=== PATIENT | female | born 1930 | race Caucasian/White ===

== ENCOUNTER 2017-11-03 03:02 | Inpatient (IN) ==
[2017-11-03] MEDS ORDERED: KETOROLAC 30 MG/1 ML VIAL IV STA (03:38)
[2017-11-03 04:06] LABS: Basophils % 0.2 % (0.0-0.8); Eosinophils % 0.1 % (0.00-10.9); Hematocrit 40.7 VOL% (35.7-47.0); Hemoglobin 13.7 GM/DL (12.0-16.0); Immature Granulocytes % 1.7 %; Immature Granulocytes Absolute 0.23 #; Lymphocytes # 2.2 10*3/uL (1.4-4.0); Lymphocytes % 16.2 % (21.3-54.2); Mean Corpuscular HGB Conc 33.7 GM/DL (32-36); Mean Corpuscular Hemoglobin 30 PG (27-34); Mean Corpuscular Volume 87.9 FL (87-102); Mean Platelet Volume 9.5 FL (9.6-12.0); Monocytes # 1.3 10*3/uL (0.11-0.8); Monocytes % 9.8 % (1.7-12.7); Neutrophils # 9.8 10*3/uL (1.4-7.4); Platelet Count 267 T/CUMM (130-400); Red Blood Count 4.63 MC/CUMM (3.8-5.5); Red Cell Distribution Width 13.4 % (9.3-17.3); White Blood Count 13.6 T/CUMM (4-12)
[2017-11-03 04:24] LABS: Bilirubin,Total 0.7 MG/DL (0.2-1.0); Calcium 9.6 MG/DL (8.5-10.1); Osmolality,Calculated 273.1 MOS/KG (273-304); Total Protein 6.9 G/DL (6.4-8.3)
[2017-11-03] MEDS ORDERED: DEXTROSE 50% 25 GM/50 ML VIAL IV PRN (06:22)
[2017-11-03] MEDS ORDERED: ACETAMINOPHEN 325 MG TABLET PO PRN (06:22)
[2017-11-03] MEDS ORDERED: ONDANSETRON 4 MG/2 ML VIAL IV PRN (06:22)
[2017-11-03] MEDS ORDERED: GLUCAGON 1 MG VIAL IM PRN (06:22)
[2017-11-03] MEDS ORDERED: ALBUTEROL 2.5 MG/3 ML NEB RESP TX PRN (06:22)
[2017-11-03] MEDS ORDERED: KETOROLAC 30 MG/1 ML VIAL ONE (06:29)
[2017-11-03] MEDS ORDERED: LEVOFLOXACIN INJ 150 ML IV ONE (06:38)
[2017-11-03] MEDS ORDERED: LEVOFLOXACIN INJ 750 MG in PREMIX 1 EACH IV SCH (07:00)
[2017-11-03] MEDS ORDERED: FUROSEMIDE 20 MG TABLET PO PRN (08:24)
[2017-11-03] MEDS ORDERED: NAPROXEN 250 MG TABLET PO SCH (09:00)
[2017-11-03] MEDS ORDERED: POTASSIUM IODIDE ORAL SOLN 1,000 MG/ML BOTTLE PO SCH ×2 (09:00→15:00)
[2017-11-03] MEDS: ALBUTEROL/IPRATROPIUM 3 ML NEB RESP TX SCH ×3 (09:23→19:26)
[2017-11-03] MEDS: INSULIN REGULAR 100 UNIT/ML SUBCUT SCH ×4 (09:48→21:52)
[2017-11-03] MEDS: sitaGLIPtin 100 MG TABLET PO SCH (10:05)
[2017-11-03] MEDS: METOPROLOL SUCCINATE XL 50 MG TABLET PO SCH (10:06)
[2017-11-03] MEDS: CALCIUM (CARBONATE)/VITAMIN D 500 MG-200 UNIT TABLET PO SCH (10:06)
[2017-11-03] MEDS: MONTELUKAST 10 MG TABLET PO SCH (10:06)
[2017-11-03] MEDS: predniSONE 5 MG TABLET PO SCH (10:06)
[2017-11-03] MEDS: hydroCHLOROthiazide 12.5 MG CAPSULE PO SCH ×3 (10:06→21:52)
[2017-11-03] MEDS: LEVOTHYROXINE 50 MCG TABLET PO SCH (10:06)
[2017-11-03] MEDS: THEOPHYLLINE ER (24 HR) 200 MG CAPSULE PO SCH (10:06)
[2017-11-03] MEDS: ROSUVASTATIN 10 MG TABLET PO SCH (10:07)
[2017-11-03] MEDS: POTASSIUM CHLORIDE 20 MEQ TABLET PO SCH ×2 (10:07→21:52)
[2017-11-03] MEDS: ASPIRIN EC 81 MG TABLET PO SCH ×2 (10:07→21:53)
[2017-11-03] MEDS: PANTOPRAZOLE 40 MG TABLET PO SCH (10:07)
[2017-11-03 12:53] LABS: Apearance,Urine Slightly Hazy (Clear); Bilirubin,Urine Negative (Negative); Blood, Urine Negative (Negative); Glucose,Urine (UA) 50 mg/dL (Negative); Ketones,Urine Negative (Negative); Mucus,Urine Occasional /LPF (Occasional); Nitrite,Urine Negative (Negative); Protein,Urine Negative; RBC,Urine 17 /HPF (0-4); Squamous Epithelial Cell,Urine Occasional /HPF (0-10); Urine Color Yellow (Yellow); Urine Specific Gravity > 1.060 (1.001-1.035); Urine Urobilinogen < 2.0 EU/DL (0.2-1.0); WBC,Urine 73 /HPF (0-6)
[2017-11-03] MEDS: MAGNESIUM CHLORIDE 64 MG TABLET PO SCH ×2 (14:21→21:52)
[2017-11-03] MEDS: methylPREDNISolone SOD SUC 40 MG/1 ML VIAL IV SCH (14:45)
[2017-11-03] MEDS: CHOLECALCIFEROL 400 UNIT TABLET PO SCH (21:52)
[2017-11-03] MEDS: BENZONATATE 100 MG CAPSULE PO SCH (21:53)
[2017-11-03] MEDS: NAPROXEN 250 MG TABLET PO SCH (21:55)
[2017-11-04] MEDS: ALBUTEROL/IPRATROPIUM 3 ML NEB RESP TX SCH ×4 (00:25→20:16)
[2017-11-04] MEDS: methylPREDNISolone SOD SUC 40 MG/1 ML VIAL IV SCH ×2 (01:16→11:55)
[2017-11-04] MEDS: LEVOTHYROXINE 50 MCG TABLET PO SCH (06:26)
[2017-11-04 06:37] LABS: Basophils % 0.2 % (0.0-0.8); Hematocrit 37.9 VOL% (35.7-47.0); Hemoglobin 12.8 GM/DL (12.0-16.0); Immature Granulocytes % 1.5 %; Immature Granulocytes Absolute 0.29 #; Lymphocytes # 0.7 10*3/uL (1.4-4.0); Lymphocytes % 3.8 % (21.3-54.2); Mean Corpuscular HGB Conc 33.8 GM/DL (32-36); Mean Corpuscular Hemoglobin 29 PG (27-34); Mean Corpuscular Volume 86.5 FL (87-102); Mean Platelet Volume 9.9 FL (9.6-12.0); Monocytes # 0.4 10*3/uL (0.11-0.8); Monocytes % 1.9 % (1.7-12.7); Neutrophils # 17.8 10*3/uL (1.4-7.4); Neutrophils % 92.6 % (38.7-73.9); Platelet Count 287 T/CUMM (130-400); Red Blood Count 4.38 MC/CUMM (3.8-5.5); Red Cell Distribution Width 13.2 % (9.3-17.3); White Blood Count 19.2 T/CUMM (4-12)
[2017-11-04 06:59] LABS: Albumin 3.4 G/DL (3.4-5.0); Bilirubin,Total 0.8 MG/DL (0.2-1.0); Calcium 9.1 MG/DL (8.5-10.1); Osmolality,Calculated 273.2 MOS/KG (273-304); Potassium 4.6 MMOL/L (3.5-5.1)
[2017-11-04 07:02] LABS: Hypochromasia 1+; Lymphocytes 4 % (20-55); Microcytosis 1+; Platelet Estimate Normal; Segmented Neutrophils 92 % (50-85); Total Cells Counted 100
[2017-11-04] MEDS: INSULIN REGULAR 100 UNIT/ML SUBCUT SCH ×4 (08:49→21:11)
[2017-11-04] MEDS: hydroCHLOROthiazide 12.5 MG CAPSULE PO SCH ×3 (09:00→21:12)
[2017-11-04] MEDS: THEOPHYLLINE ER (24 HR) 200 MG CAPSULE PO SCH (09:01)
[2017-11-04] MEDS: NAPROXEN 250 MG TABLET PO SCH ×2 (09:01→21:12)
[2017-11-04] MEDS: MAGNESIUM CHLORIDE 64 MG TABLET PO SCH ×2 (09:01→21:12)
[2017-11-04] MEDS: sitaGLIPtin 100 MG TABLET PO SCH (09:01)
[2017-11-04] MEDS: CALCIUM (CARBONATE)/VITAMIN D 500 MG-200 UNIT TABLET PO SCH (09:01)
[2017-11-04] MEDS: ROSUVASTATIN 10 MG TABLET PO SCH (09:01)
[2017-11-04] MEDS: POTASSIUM CHLORIDE 20 MEQ TABLET PO SCH ×2 (09:01→21:12)
[2017-11-04] MEDS: PANTOPRAZOLE 40 MG TABLET PO SCH (09:01)
[2017-11-04] MEDS: predniSONE 5 MG TABLET PO SCH (09:01)
[2017-11-04] MEDS: ASPIRIN EC 81 MG TABLET PO SCH ×2 (09:02→21:13)
[2017-11-04] MEDS: MONTELUKAST 10 MG TABLET PO SCH (09:02)
[2017-11-04] MEDS: METOPROLOL SUCCINATE XL 50 MG TABLET PO SCH (09:02)
[2017-11-04] MEDS ORDERED: LEVOFLOXACIN INJ 750 MG in PREMIX 1 EACH IV SCH (09:30)
[2017-11-04] MEDS ORDERED: FOSFOMYCIN 3 GM PACK PO ONE (10:20)
[2017-11-04 12:18] LABS: Apearance,Urine Slightly Hazy (Clear); Bilirubin,Urine Negative (Negative); Blood, Urine Moderate mg/dL (Negative); Glucose,Urine (UA) >=500 mg/dL (Negative); Hyaline Casts,Urine 6 /LPF (0-3); Ketones,Urine Negative (Negative); Mucus,Urine Few /LPF (Occasional); Nitrite,Urine Negative (Negative); Protein,Urine 30 MG/DL; RBC,Urine 93 /HPF (0-4); Squamous Epithelial Cell,Urine Occasional /HPF (0-10); Urine Color Yellow (Yellow); Urine Specific Gravity 1.024 (1.001-1.035); Urine Urobilinogen < 2.0 EU/DL (0.2-1.0); WBC,Urine 17 /HPF (0-6)
[2017-11-04] MEDS: CHOLECALCIFEROL 400 UNIT TABLET PO SCH (21:12)
[2017-11-04] MEDS: ZALEPLON 5 MG CAPSULE PO PRN (21:12)
[2017-11-04] MEDS: BENZONATATE 100 MG CAPSULE PO SCH (21:13)
[2017-11-05] MEDS: ALBUTEROL/IPRATROPIUM 3 ML NEB RESP TX SCH ×4 (00:49→21:13)
[2017-11-05] MEDS: LEVOTHYROXINE 50 MCG TABLET PO SCH (06:20)
[2017-11-05] MEDS: MONTELUKAST 10 MG TABLET PO SCH (08:13)
[2017-11-05] MEDS: CALCIUM (CARBONATE)/VITAMIN D 500 MG-200 UNIT TABLET PO SCH (08:13)
[2017-11-05] MEDS: sitaGLIPtin 100 MG TABLET PO SCH (08:13)
[2017-11-05] MEDS: THEOPHYLLINE ER (24 HR) 200 MG CAPSULE PO SCH (08:13)
[2017-11-05] MEDS: ROSUVASTATIN 10 MG TABLET PO SCH (08:13)
[2017-11-05] MEDS: hydroCHLOROthiazide 12.5 MG CAPSULE PO SCH ×3 (08:13→21:08)
[2017-11-05] MEDS: METOPROLOL SUCCINATE XL 50 MG TABLET PO SCH (08:13)
[2017-11-05] MEDS: POTASSIUM CHLORIDE 20 MEQ TABLET PO SCH ×2 (08:13→21:09)
[2017-11-05] MEDS: NAPROXEN 250 MG TABLET PO SCH ×2 (08:13→21:08)
[2017-11-05] MEDS: ASPIRIN EC 81 MG TABLET PO SCH ×2 (08:13→21:09)
[2017-11-05] MEDS: MAGNESIUM CHLORIDE 64 MG TABLET PO SCH ×2 (08:13→21:08)
[2017-11-05] MEDS: methylPREDNISolone SOD SUC 40 MG/1 ML VIAL IV SCH (08:13)
[2017-11-05] MEDS: PANTOPRAZOLE 40 MG TABLET PO SCH (08:13)
[2017-11-05] MEDS: predniSONE 5 MG TABLET PO SCH (08:13)
[2017-11-05] MEDS: INSULIN REGULAR 100 UNIT/ML SUBCUT SCH ×4 (08:44→21:09)
[2017-11-05] MEDS ORDERED: MAGNESIUM HYDROXIDE SUSP 30 ML UDCUP PO PRN (11:40)
[2017-11-05] MEDS ORDERED: MEROPENEM 500 MG in SODIUM CHLORIDE 0.9% 100 ML IV SCH (13:00)
[2017-11-05] MEDS ORDERED: FOSFOMYCIN 3 GM PACK PO ONE (15:00)
[2017-11-05] MEDS ORDERED: BISACODYL 5 MG TABLET PO ONE (16:20)
[2017-11-05] MEDS: TROLAMINE SALICYLATE 10% CREAM 85 GM TUBE TOP PRN (17:05)
[2017-11-05] MEDS: ZALEPLON 5 MG CAPSULE PO PRN (21:07)
[2017-11-05] MEDS: BENZONATATE 100 MG CAPSULE PO SCH (21:07)
[2017-11-05] MEDS: CHOLECALCIFEROL 400 UNIT TABLET PO SCH (21:08)
[2017-11-06] MEDS: ALBUTEROL/IPRATROPIUM 3 ML NEB RESP TX SCH ×4 (01:41→19:21)
[2017-11-06 06:33] LABS: Basophils # 0.1 10*3/uL (0.0-0.2); Basophils % 0.2 % (0.0-0.8); Hemoglobin 13.3 GM/DL (12.0-16.0); Immature Granulocytes % 1.8 %; Immature Granulocytes Absolute 0.37 #; Lymphocytes # 2.7 10*3/uL (1.4-4.0); Lymphocytes % 13.2 % (21.3-54.2); Mean Corpuscular HGB Conc 33.3 GM/DL (32-36); Mean Corpuscular Hemoglobin 29 PG (27-34); Mean Corpuscular Volume 88.5 FL (87-102); Mean Platelet Volume 9.6 FL (9.6-12.0); Monocytes # 1.7 10*3/uL (0.11-0.8); Monocytes % 8.3 % (1.7-12.7); Neutrophils # 15.4 10*3/uL (1.4-7.4); Neutrophils % 76.5 % (38.7-73.9); Platelet Count 299 T/CUMM (130-400); Red Blood Count 4.52 MC/CUMM (3.8-5.5); Red Cell Distribution Width 13.3 % (9.3-17.3); White Blood Count 20.2 T/CUMM (4-12)
[2017-11-06 06:45] LABS: Calcium 8.8 MG/DL (8.5-10.1); Osmolality,Calculated 269.5 MOS/KG (273-304)
[2017-11-06 06:52] LABS: Eosinophils 1 % (0-10); Giant Platelets Few; Hypochromasia 1+; Lymphocytes 11 % (20-55); Platelet Estimate Adequate; Segmented Neutrophils 86 % (50-85); Total Cells Counted 100
[2017-11-06 06:53] LABS: Microcytosis Slight
[2017-11-06] MEDS: hydroCHLOROthiazide 12.5 MG CAPSULE PO SCH ×3 (08:36→20:57)
[2017-11-06] MEDS: LEVOTHYROXINE 50 MCG TABLET PO SCH (08:36)
[2017-11-06] MEDS: ASPIRIN EC 81 MG TABLET PO SCH ×2 (08:36→20:57)
[2017-11-06] MEDS: ROSUVASTATIN 10 MG TABLET PO SCH (08:36)
[2017-11-06] MEDS: INSULIN REGULAR 100 UNIT/ML SUBCUT SCH ×4 (08:36→21:24)
[2017-11-06] MEDS: sitaGLIPtin 100 MG TABLET PO SCH (08:36)
[2017-11-06] MEDS: POTASSIUM CHLORIDE 20 MEQ TABLET PO SCH ×2 (08:37→20:57)
[2017-11-06] MEDS: NAPROXEN 250 MG TABLET PO SCH ×2 (08:37→20:57)
[2017-11-06] MEDS: THEOPHYLLINE ER (24 HR) 200 MG CAPSULE PO SCH (08:38)
[2017-11-06] MEDS: predniSONE 5 MG TABLET PO SCH (08:38)
[2017-11-06] MEDS: PANTOPRAZOLE 40 MG TABLET PO SCH (08:38)
[2017-11-06] MEDS: CALCIUM (CARBONATE)/VITAMIN D 500 MG-200 UNIT TABLET PO SCH (08:38)
[2017-11-06] MEDS: MONTELUKAST 10 MG TABLET PO SCH (08:38)
[2017-11-06] MEDS: MAGNESIUM CHLORIDE 64 MG TABLET PO SCH ×2 (08:38→20:57)
[2017-11-06] MEDS: methylPREDNISolone SOD SUC 40 MG/1 ML VIAL IV SCH (08:38)
[2017-11-06] MEDS: METOPROLOL SUCCINATE XL 50 MG TABLET PO SCH (08:38)
[2017-11-06] MEDS: TROLAMINE SALICYLATE 10% CREAM 85 GM TUBE TOP PRN (16:00)
[2017-11-06] MEDS: BENZONATATE 100 MG CAPSULE PO SCH (20:57)
[2017-11-06] MEDS: CHOLECALCIFEROL 400 UNIT TABLET PO SCH (20:57)
[2017-11-06] MEDS: ZALEPLON 5 MG CAPSULE PO PRN (20:57)
[2017-11-07] MEDS: ALBUTEROL/IPRATROPIUM 3 ML NEB RESP TX SCH ×4 (00:24→20:13)
[2017-11-07] MEDS: LEVOTHYROXINE 50 MCG TABLET PO SCH (06:13)
[2017-11-07] MEDS: INSULIN REGULAR 100 UNIT/ML SUBCUT SCH ×4 (07:38→20:47)
[2017-11-07] MEDS: ROSUVASTATIN 10 MG TABLET PO SCH (08:14)
[2017-11-07] MEDS: PANTOPRAZOLE 40 MG TABLET PO SCH (08:14)
[2017-11-07] MEDS: CALCIUM (CARBONATE)/VITAMIN D 500 MG-200 UNIT TABLET PO SCH (08:14)
[2017-11-07] MEDS: NAPROXEN 250 MG TABLET PO SCH ×2 (08:14→20:46)
[2017-11-07] MEDS: THEOPHYLLINE ER (24 HR) 200 MG CAPSULE PO SCH (08:14)
[2017-11-07] MEDS: MONTELUKAST 10 MG TABLET PO SCH (08:14)
[2017-11-07] MEDS: predniSONE 5 MG TABLET PO SCH (08:14)
[2017-11-07] MEDS: methylPREDNISolone SOD SUC 40 MG/1 ML VIAL IV SCH (08:14)
[2017-11-07] MEDS: METOPROLOL SUCCINATE XL 50 MG TABLET PO SCH (08:14)
[2017-11-07] MEDS: hydroCHLOROthiazide 12.5 MG CAPSULE PO SCH ×3 (08:15→20:46)
[2017-11-07] MEDS: sitaGLIPtin 100 MG TABLET PO SCH (08:15)
[2017-11-07] MEDS: POTASSIUM CHLORIDE 20 MEQ TABLET PO SCH ×2 (08:15→20:46)
[2017-11-07] MEDS: MAGNESIUM CHLORIDE 64 MG TABLET PO SCH ×2 (08:15→20:46)
[2017-11-07] MEDS: ASPIRIN EC 81 MG TABLET PO SCH ×2 (08:15→20:46)
[2017-11-07] MEDS: FLUTICASONE 50 MCG NASAL SPRAY 16 GM BOTTLE BOTH NARES SCH ×2 (12:05→20:48)
[2017-11-07] MEDS: AZTREONAM 1,000 MG in SYRINGE 1 EACH IV SCH (14:37)
[2017-11-07] MEDS: BENZONATATE 100 MG CAPSULE PO SCH (20:46)
[2017-11-07] MEDS: CHOLECALCIFEROL 400 UNIT TABLET PO SCH (20:46)
[2017-11-08] MEDS: ALBUTEROL/IPRATROPIUM 3 ML NEB RESP TX SCH ×3 (00:08→13:43)
[2017-11-08] MEDS: ZALEPLON 5 MG CAPSULE PO PRN (00:18)
[2017-11-08] MEDS: AZTREONAM 1,000 MG in SYRINGE 1 EACH IV SCH (03:58)
[2017-11-08] MEDS: LEVOTHYROXINE 50 MCG TABLET PO SCH (06:18)
[2017-11-08 06:33] LABS: Basophils # 0.1 10*3/uL (0.0-0.2); Basophils % 0.5 % (0.0-0.8); Hematocrit 42.5 VOL% (35.7-47.0); Hemoglobin 14.5 GM/DL (12.0-16.0); Immature Granulocytes % 3.2 %; Immature Granulocytes Absolute 0.56 #; Lymphocytes # 2.9 10*3/uL (1.4-4.0); Lymphocytes % 16.5 % (21.3-54.2); Mean Corpuscular HGB Conc 34.1 GM/DL (32-36); Mean Corpuscular Hemoglobin 29 PG (27-34); Mean Corpuscular Volume 86.2 FL (87-102); Mean Platelet Volume 9.4 FL (9.6-12.0); Monocytes # 1.2 10*3/uL (0.11-0.8); Monocytes % 6.9 % (1.7-12.7); NRBC # 0.03 10*3/uL; Neutrophils # 12.6 10*3/uL (1.4-7.4); Neutrophils % 72.9 % (38.7-73.9); Platelet Count 346 T/CUMM (130-400); Red Blood Count 4.93 MC/CUMM (3.8-5.5); Red Cell Distribution Width 13.4 % (9.3-17.3); White Blood Count 17.3 T/CUMM (4-12)
[2017-11-08 07:04] LABS: Band Neutrophils 1 % (0-10); Eosinophils 4 % (0-10); Hypochromasia 1+; Lymphocytes 21 % (20-55); Microcytosis Slight; Platelet Estimate Normal; Segmented Neutrophils 68 % (50-85); Total Cells Counted 100
[2017-11-08 07:05] LABS: Calcium 9.9 MG/DL (8.5-10.1); Osmolality,Calculated 270.4 MOS/KG (273-304); Potassium 4.5 MMOL/L (3.5-5.1)
[2017-11-08] MEDS: THEOPHYLLINE ER (24 HR) 200 MG CAPSULE PO SCH (08:12)
[2017-11-08] MEDS: MONTELUKAST 10 MG TABLET PO SCH (08:12)
[2017-11-08] MEDS: PANTOPRAZOLE 40 MG TABLET PO SCH (08:12)
[2017-11-08] MEDS: POTASSIUM CHLORIDE 20 MEQ TABLET PO SCH (08:12)
[2017-11-08] MEDS: ROSUVASTATIN 10 MG TABLET PO SCH (08:12)
[2017-11-08] MEDS: INSULIN REGULAR 100 UNIT/ML SUBCUT SCH ×2 (08:12→11:54)
[2017-11-08] MEDS: METOPROLOL SUCCINATE XL 50 MG TABLET PO SCH (08:12)
[2017-11-08] MEDS: sitaGLIPtin 100 MG TABLET PO SCH (08:12)
[2017-11-08] MEDS: hydroCHLOROthiazide 12.5 MG CAPSULE PO SCH ×2 (08:12→15:03)
[2017-11-08] MEDS: NAPROXEN 250 MG TABLET PO SCH (08:12)
[2017-11-08] MEDS: ASPIRIN EC 81 MG TABLET PO SCH (08:12)
[2017-11-08] MEDS: CALCIUM (CARBONATE)/VITAMIN D 500 MG-200 UNIT TABLET PO SCH (08:12)
[2017-11-08] MEDS: MAGNESIUM CHLORIDE 64 MG TABLET PO SCH (08:12)
[2017-11-08] MEDS: FLUTICASONE 50 MCG NASAL SPRAY 16 GM BOTTLE BOTH NARES SCH (08:12)
[2017-11-08] MEDS: methylPREDNISolone SOD SUC 40 MG/1 ML VIAL IV SCH (08:13)
[2017-11-08 12:29] VITALS: BP 153/82
[2017-11-08 14:35] LABS: Apearance,Urine CLEAR (Clear); Bacteria,Urine Occasional /HPF (Few); Bilirubin,Urine Negative (Negative); Blood, Urine Small mg/dL (Negative); Glucose,Urine (UA) Negative (Negative); Ketones,Urine Negative (Negative); Mucus,Urine Few /LPF (Occasional); Nitrite,Urine Positive (Negative); Protein,Urine Negative; RBC,Urine 7 /HPF (0-4); Squamous Epithelial Cell,Urine Occasional /HPF (0-10); Urine Color Yellow (Yellow); Urine Specific Gravity 1.015 (1.001-1.035); Urine Urobilinogen < 2.0 EU/DL (0.2-1.0); WBC,Urine 6 /HPF (0-6)
[2017-11-09] MEDS ORDERED: predniSONE 5 MG TABLET PO SCH (09:00)
== END 2017-11-08 16:12 | disposition swing bed (61) | DRG 194 ==
LOC: EDUNIT# 03:02 → N.ED 03:02 → EDBD 03:02 → N.EDINP 06:22 → SUATTDRO 06:22 → N.5E 06:50
PROVIDERS: ADMIT Internal Medicine; ATTEND Internal Medicine

== ENCOUNTER 2018-10-14 14:27 | Inpatient (IN) ==
[2018-10-14 16:29] LABS: Basophils % 0.3 % (0.0-0.8); Hematocrit 41.2 VOL% (35.7-47.0); Hemoglobin 13.1 GM/DL (12.0-16.0); Immature Granulocytes % 0.8 %; Immature Granulocytes Absolute 0.09 #; Lymphocytes # 2.1 10*3/uL (1.4-4.0); Lymphocytes % 19.3 % (21.3-54.2); Mean Corpuscular HGB Conc 31.8 GM/DL (32-36); Mean Corpuscular Hemoglobin 27 PG (27-34); Mean Corpuscular Volume 85.3 FL (87-102); Mean Platelet Volume 9.7 FL (9.6-12.0); Monocytes # 1.3 10*3/uL (0.11-0.8); Monocytes % 11.4 % (1.7-12.7); Neutrophils # 7.5 10*3/uL (1.4-7.4); Neutrophils % 68.2 % (38.7-73.9); Platelet Count 337 T/CUMM (130-400); Red Blood Count 4.83 MC/CUMM (3.8-5.5); Red Cell Distribution Width 14.1 % (9.3-17.3)
[2018-10-14 16:47] LABS: Bilirubin,Total 0.5 MG/DL (0.2-1.0); Calcium 9.4 MG/DL (8.5-10.1); Osmolality,Calculated 270.1 MOS/KG (273-304); Potassium 4.2 MMOL/L (3.5-5.1); Total Protein 6.8 G/DL (6.4-8.3)
[2018-10-14 16:49] LABS: Apearance,Urine Slightly Hazy (Clear); Bacteria,Urine Many /HPF (Few); Bilirubin,Urine Negative (Negative); Blood, Urine Moderate mg/dL (Negative); Glucose,Urine (UA) Negative (Negative); Ketones,Urine 5 mg/dL (Negative); Mucus,Urine Occasional /LPF (Occasional); Nitrite,Urine Positive (Negative); Protein,Urine Negative; RBC,Urine 6 /HPF (0-4); Urine Color Yellow (Yellow); Urine Specific Gravity 1.015 (1.001-1.035); Urine Urobilinogen < 2.0 EU/DL (0.2-1.0); WBC,Urine 48 /HPF (0-6)
[2018-10-14] MEDS ORDERED: ACETAMINOPHEN 500 MG TABLET PO STA (17:16)
[2018-10-14] MEDS ORDERED: SODIUM CHLORIDE 0.9% 500 ML IV STA (18:45)
[2018-10-14] MEDS ORDERED: ALBUTEROL/IPRATROPIUM 3 ML NEB RESP TX PRN (21:05)
[2018-10-14] MEDS ORDERED: ONDANSETRON 4 MG/2 ML VIAL IV PRN (21:05)
[2018-10-14] MEDS ORDERED: DEXTROSE 50% 25 GM/50 ML SYRINGE IV PRN (21:05)
[2018-10-14] MEDS ORDERED: GLUCAGON 1 MG VIAL IM PRN (21:05)
[2018-10-14] MEDS ORDERED: ACETAMINOPHEN 325 MG TABLET PO PRN (21:05)
[2018-10-14] MEDS: SODIUM CHLORIDE 0.9% 1,000 ML IV SCH (22:02)
[2018-10-14] MEDS: MEROPENEM 1,000 MG in SODIUM CHLORIDE 0.9% 100 ML IV SCH (22:02)
[2018-10-14] MEDS: ENOXAPARIN 40 MG/0.4 ML SYRINGE SUBCUT SCH (22:07)
[2018-10-14] MEDS: INSULIN LISPRO 100 UNIT/ML SUBCUT SCH (22:08)
[2018-10-14] MEDS: VANCOMYCIN INJ 1,000 MG in SODIUM CHLORIDE 0.9% 250 ML IV SCH (22:51)
[2018-10-14] MEDS: IPRATROPIUM 0.06% NASAL SPRAY 15 ML BOTTLE BOTH NARES SCH (23:29)
[2018-10-14] MEDS: hydrOXYzine HCL 25 MG TABLET PO SCH (23:29)
[2018-10-14] MEDS: BENZONATATE 100 MG CAPSULE PO SCH (23:29)
[2018-10-14] MEDS: METOPROLOL TARTRATE 100 MG TABLET PO SCH (23:30)
[2018-10-14] MEDS: MAGNESIUM CHLORIDE 64 MG TABLET PO SCH (23:30)
[2018-10-14] MEDS: PANTOPRAZOLE 40 MG TABLET PO SCH (23:30)
[2018-10-15 05:42] LABS: Basophils % 0.4 % (0.0-0.8); Hematocrit 40.2 VOL% (35.7-47.0); Hemoglobin 12.4 GM/DL (12.0-16.0); Immature Granulocytes % 0.6 %; Immature Granulocytes Absolute 0.05 #; Lymphocytes # 1.7 10*3/uL (1.4-4.0); Mean Corpuscular HGB Conc 30.8 GM/DL (32-36); Mean Corpuscular Hemoglobin 27 PG (27-34); Mean Corpuscular Volume 86.6 FL (87-102); Mean Platelet Volume 10.2 FL (9.6-12.0); Monocytes # 1.1 10*3/uL (0.11-0.8); Monocytes % 13.4 % (1.7-12.7); Neutrophils # 5.5 10*3/uL (1.4-7.4); Neutrophils % 65.6 % (38.7-73.9); Platelet Count 313 T/CUMM (130-400); Red Blood Count 4.64 MC/CUMM (3.8-5.5); Red Cell Distribution Width 14.2 % (9.3-17.3); White Blood Count 8.3 T/CUMM (4-12)
[2018-10-15] MEDS: LEVOTHYROXINE 50 MCG TABLET PO SCH (06:02)
[2018-10-15 06:20] LABS: Albumin 2.6 G/DL (3.4-5.0); Bilirubin,Total 0.6 MG/DL (0.2-1.0); Calcium 8.5 MG/DL (8.5-10.1); Potassium 3.8 MMOL/L (3.5-5.1); Total Protein 6.3 G/DL (6.4-8.3); Troponin I 0.025 NG/ML (0.00-0.045)
[2018-10-15] MEDS: ALBUTEROL/IPRATROPIUM 3 ML NEB RESP TX SCH ×2 (07:24→19:23)
[2018-10-15] MEDS: traMADol 50 MG TABLET PO PRN ×2 (08:10→20:49)
[2018-10-15] MEDS: INSULIN LISPRO 100 UNIT/ML SUBCUT SCH ×4 (08:20→20:50)
[2018-10-15] MEDS ORDERED: PANTOPRAZOLE 40 MG TABLET PO SCH (09:00)
[2018-10-15] MEDS: METOPROLOL TARTRATE 100 MG TABLET PO SCH ×2 (10:05→20:52)
[2018-10-15] MEDS: THEOPHYLLINE ER 300 MG TABLET PO SCH (10:05)
[2018-10-15] MEDS: MAGNESIUM CHLORIDE 64 MG TABLET PO SCH ×2 (10:05→20:49)
[2018-10-15] MEDS: ASPIRIN EC 81 MG TABLET PO SCH (10:05)
[2018-10-15] MEDS: BENZONATATE 100 MG CAPSULE PO SCH ×3 (10:05→20:50)
[2018-10-15] MEDS: MULTIVITAMIN (CENTRUM) TABLET PO SCH (10:05)
[2018-10-15] MEDS: CALCIUM (CARBONATE)/VITAMIN D 600 MG-400 UNIT TABLET PO SCH (10:06)
[2018-10-15] MEDS: POTASSIUM CHLORIDE 20 MEQ TABLET PO SCH (10:06)
[2018-10-15] MEDS: MONTELUKAST 10 MG TABLET PO SCH (10:06)
[2018-10-15] MEDS: PANTOPRAZOLE 40 MG TABLET PO SCH ×2 (10:06→20:50)
[2018-10-15] MEDS: predniSONE 5 MG TABLET PO SCH (10:06)
[2018-10-15] MEDS: SODIUM CHLORIDE 0.9% 1,000 ML IV SCH ×2 (10:07→19:00)
[2018-10-15] MEDS: NON-FORMULARY MEDICATION (Fluticasone/Vilanterol [Breo Ellipta 200-25 Mcg Inh] 1 PUFF) INH SCH (10:07)
[2018-10-15] MEDS: IPRATROPIUM 0.06% NASAL SPRAY 15 ML BOTTLE BOTH NARES SCH ×3 (10:09→20:50)
[2018-10-15] MEDS: SERTRALINE 25 MG TABLET PO SCH (10:09)
[2018-10-15] MEDS: MEROPENEM 1,000 MG in SODIUM CHLORIDE 0.9% 100 ML IV SCH ×2 (10:17→21:53)
[2018-10-15] MEDS: VANCOMYCIN INJ 1,000 MG in SODIUM CHLORIDE 0.9% 250 ML IV SCH ×2 (10:17→22:28)
[2018-10-15] MEDS: oxyCODONE/ACETAMINOPHEN 5-325 MG TABLET PO PRN (12:51)
[2018-10-15] MEDS: GABAPENTIN 100 MG CAPSULE PO SCH ×2 (15:39→20:49)
[2018-10-15] MEDS: diphenhydrAMINE CAP 25 MG CAPSULE PO PRN (15:39)
[2018-10-15] MEDS: ENOXAPARIN 40 MG/0.4 ML SYRINGE SUBCUT SCH (20:50)
[2018-10-15] MEDS: hydrOXYzine HCL 25 MG TABLET PO SCH (20:50)
[2018-10-16 05:22] LABS: Basophils % 0.3 % (0.0-0.8); Hematocrit 36.7 VOL% (35.7-47.0); Hemoglobin 11.3 GM/DL (12.0-16.0); Immature Granulocytes % 0.6 %; Immature Granulocytes Absolute 0.06 #; Lymphocytes # 1.6 10*3/uL (1.4-4.0); Lymphocytes % 14.5 % (21.3-54.2); Mean Corpuscular HGB Conc 30.8 GM/DL (32-36); Mean Corpuscular Hemoglobin 27 PG (27-34); Mean Corpuscular Volume 86.8 FL (87-102); Mean Platelet Volume 9.9 FL (9.6-12.0); Monocytes # 1.3 10*3/uL (0.11-0.8); Neutrophils # 7.8 10*3/uL (1.4-7.4); Neutrophils % 72.6 % (38.7-73.9); Platelet Count 307 T/CUMM (130-400); Red Blood Count 4.23 MC/CUMM (3.8-5.5); Red Cell Distribution Width 14.3 % (9.3-17.3); White Blood Count 10.7 T/CUMM (4-12)
[2018-10-16] MEDS: LEVOTHYROXINE 50 MCG TABLET PO SCH (05:29)
[2018-10-16] MEDS: diphenhydrAMINE CAP 25 MG CAPSULE PO PRN (05:29)
[2018-10-16] MEDS: traMADol 50 MG TABLET PO PRN (05:31)
[2018-10-16 05:38] LABS: Calcium 8.7 MG/DL (8.5-10.1); Osmolality,Calculated 273.7 MOS/KG (273-304); Potassium 4.1 MMOL/L (3.5-5.1)
[2018-10-16] MEDS: ALBUTEROL/IPRATROPIUM 3 ML NEB RESP TX SCH ×2 (07:15→19:14)
[2018-10-16] MEDS: INSULIN LISPRO 100 UNIT/ML SUBCUT SCH ×4 (09:19→21:46)
[2018-10-16] MEDS: IPRATROPIUM 0.06% NASAL SPRAY 15 ML BOTTLE BOTH NARES SCH ×3 (09:19→22:02)
[2018-10-16] MEDS: THEOPHYLLINE ER 300 MG TABLET PO SCH (09:20)
[2018-10-16] MEDS: MULTIVITAMIN (CENTRUM) TABLET PO SCH (09:20)
[2018-10-16] MEDS: BENZONATATE 100 MG CAPSULE PO SCH ×3 (09:20→21:45)
[2018-10-16] MEDS: ASPIRIN EC 81 MG TABLET PO SCH (09:20)
[2018-10-16] MEDS: GABAPENTIN 100 MG CAPSULE PO SCH ×3 (09:20→21:46)
[2018-10-16] MEDS: oxyCODONE/ACETAMINOPHEN 5-325 MG TABLET PO PRN ×2 (09:20→21:45)
[2018-10-16] MEDS: MONTELUKAST 10 MG TABLET PO SCH (09:20)
[2018-10-16] MEDS: CALCIUM (CARBONATE)/VITAMIN D 600 MG-400 UNIT TABLET PO SCH (09:20)
[2018-10-16] MEDS: MAGNESIUM CHLORIDE 64 MG TABLET PO SCH ×2 (09:20→21:46)
[2018-10-16] MEDS: PANTOPRAZOLE 40 MG TABLET PO SCH ×2 (09:21→21:45)
[2018-10-16] MEDS: POTASSIUM CHLORIDE 20 MEQ TABLET PO SCH (09:21)
[2018-10-16] MEDS: predniSONE 5 MG TABLET PO SCH (09:21)
[2018-10-16] MEDS: SERTRALINE 25 MG TABLET PO SCH (09:21)
[2018-10-16] MEDS: METOPROLOL TARTRATE 100 MG TABLET PO SCH ×2 (09:21→21:45)
[2018-10-16] MEDS: NON-FORMULARY MEDICATION (Fluticasone/Vilanterol [Breo Ellipta 200-25 Mcg Inh] 1 PUFF) INH SCH (10:21)
[2018-10-16] MEDS: SODIUM CHLORIDE 0.9% 1,000 ML IV SCH ×2 (10:56→21:43)
[2018-10-16] MEDS: MEROPENEM 1,000 MG in SODIUM CHLORIDE 0.9% 100 ML IV SCH ×2 (10:56→21:44)
[2018-10-16] MEDS: VANCOMYCIN INJ 1,000 MG in SODIUM CHLORIDE 0.9% 250 ML IV SCH (11:37)
[2018-10-16] MEDS: hydrOXYzine HCL 25 MG TABLET PO SCH (21:46)
[2018-10-16] MEDS: ENOXAPARIN 40 MG/0.4 ML SYRINGE SUBCUT SCH (21:49)
[2018-10-17 04:57] LABS: Basophils % 0.2 % (0.0-0.8); Hemoglobin 11.5 GM/DL (12.0-16.0); Immature Granulocytes % 0.5 %; Immature Granulocytes Absolute 0.05 #; Lymphocytes # 1.8 10*3/uL (1.4-4.0); Lymphocytes % 19.4 % (21.3-54.2); Mean Corpuscular HGB Conc 30.3 GM/DL (32-36); Mean Corpuscular Hemoglobin 27 PG (27-34); Mean Corpuscular Volume 88.2 FL (87-102); Mean Platelet Volume 10.1 FL (9.6-12.0); Monocytes # 1.2 10*3/uL (0.11-0.8); Monocytes % 12.4 % (1.7-12.7); Neutrophils # 6.3 10*3/uL (1.4-7.4); Neutrophils % 67.5 % (38.7-73.9); Platelet Count 289 T/CUMM (130-400); Red Blood Count 4.31 MC/CUMM (3.8-5.5); White Blood Count 9.3 T/CUMM (4-12)
[2018-10-17 06:20] LABS: Calcium 8.4 MG/DL (8.5-10.1); Potassium 4.5 MMOL/L (3.5-5.1)
[2018-10-17] MEDS: oxyCODONE/ACETAMINOPHEN 5-325 MG TABLET PO PRN ×2 (06:22→17:00)
[2018-10-17] MEDS: SODIUM CHLORIDE 0.9% 1,000 ML IV SCH ×3 (06:23→15:26)
[2018-10-17] MEDS: diphenhydrAMINE CAP 25 MG CAPSULE PO PRN (06:23)
[2018-10-17] MEDS: LEVOTHYROXINE 50 MCG TABLET PO SCH (06:23)
[2018-10-17] MEDS: ALBUTEROL/IPRATROPIUM 3 ML NEB RESP TX SCH ×2 (07:27→19:36)
[2018-10-17] MEDS: INSULIN LISPRO 100 UNIT/ML SUBCUT SCH ×4 (07:50→21:05)
[2018-10-17] MEDS: NON-FORMULARY MEDICATION (Fluticasone/Vilanterol [Breo Ellipta 200-25 Mcg Inh] 1 PUFF) INH SCH (09:18)
[2018-10-17] MEDS: MULTIVITAMIN (CENTRUM) TABLET PO SCH (09:19)
[2018-10-17] MEDS: THEOPHYLLINE ER 300 MG TABLET PO SCH (09:19)
[2018-10-17] MEDS: predniSONE 5 MG TABLET PO SCH (09:19)
[2018-10-17] MEDS: MEROPENEM 1,000 MG in SODIUM CHLORIDE 0.9% 100 ML IV SCH ×2 (09:19→21:30)
[2018-10-17] MEDS: MAGNESIUM CHLORIDE 64 MG TABLET PO SCH ×2 (09:19→21:29)
[2018-10-17] MEDS: GABAPENTIN 100 MG CAPSULE PO SCH ×3 (09:19→21:30)
[2018-10-17] MEDS: ASPIRIN EC 81 MG TABLET PO SCH ×2 (09:20→15:26)
[2018-10-17] MEDS: PANTOPRAZOLE 40 MG TABLET PO SCH ×2 (09:20→21:30)
[2018-10-17] MEDS: POTASSIUM CHLORIDE 20 MEQ TABLET PO SCH (09:20)
[2018-10-17] MEDS: SERTRALINE 25 MG TABLET PO SCH (09:20)
[2018-10-17] MEDS: IPRATROPIUM 0.06% NASAL SPRAY 15 ML BOTTLE BOTH NARES SCH ×3 (09:20→21:31)
[2018-10-17] MEDS: CALCIUM (CARBONATE)/VITAMIN D 600 MG-400 UNIT TABLET PO SCH (09:20)
[2018-10-17] MEDS: MONTELUKAST 10 MG TABLET PO SCH (09:20)
[2018-10-17] MEDS: METOPROLOL TARTRATE 100 MG TABLET PO SCH ×2 (09:20→21:30)
[2018-10-17] MEDS: BENZONATATE 100 MG CAPSULE PO SCH ×3 (09:20→21:29)
[2018-10-17] MEDS: hydrOXYzine HCL 25 MG TABLET PO SCH (21:29)
[2018-10-17] MEDS: ENOXAPARIN 40 MG/0.4 ML SYRINGE SUBCUT SCH (21:29)
[2018-10-18] MEDS: SODIUM CHLORIDE 0.9% 1,000 ML IV SCH ×2 (00:48→10:23)
[2018-10-18] MEDS: oxyCODONE/ACETAMINOPHEN 5-325 MG TABLET PO PRN (04:56)
[2018-10-18 05:15] LABS: Basophils % 0.2 % (0.0-0.8); Hematocrit 34.2 VOL% (35.7-47.0); Hemoglobin 10.6 GM/DL (12.0-16.0); Immature Granulocytes % 0.5 %; Immature Granulocytes Absolute 0.04 #; Lymphocytes # 1.5 10*3/uL (1.4-4.0); Lymphocytes % 17.2 % (21.3-54.2); Mean Corpuscular Hemoglobin 27 PG (27-34); Mean Corpuscular Volume 86.6 FL (87-102); Mean Platelet Volume 10.3 FL (9.6-12.0); Monocytes # 0.9 10*3/uL (0.11-0.8); Neutrophils # 6.4 10*3/uL (1.4-7.4); Neutrophils % 72.1 % (38.7-73.9); Platelet Count 299 T/CUMM (130-400); Red Blood Count 3.95 MC/CUMM (3.8-5.5); Red Cell Distribution Width 13.7 % (9.3-17.3); White Blood Count 8.9 T/CUMM (4-12)
[2018-10-18 05:41] LABS: Calcium 8.7 MG/DL (8.5-10.1); Osmolality,Calculated 269.8 MOS/KG (273-304); Potassium 3.8 MMOL/L (3.5-5.1)
[2018-10-18] MEDS: LEVOTHYROXINE 50 MCG TABLET PO SCH (06:05)
[2018-10-18] MEDS: ALBUTEROL/IPRATROPIUM 3 ML NEB RESP TX SCH (07:35)
[2018-10-18] MEDS: INSULIN LISPRO 100 UNIT/ML SUBCUT SCH ×2 (09:30→11:44)
[2018-10-18] MEDS ORDERED: LEVOFLOXACIN INJ 500 MG in PREMIX 1 EACH IV SCH (10:00)
[2018-10-18] MEDS: MONTELUKAST 10 MG TABLET PO SCH (10:19)
[2018-10-18] MEDS: POTASSIUM CHLORIDE 20 MEQ TABLET PO SCH (10:20)
[2018-10-18] MEDS: PANTOPRAZOLE 40 MG TABLET PO SCH (10:20)
[2018-10-18] MEDS: CALCIUM (CARBONATE)/VITAMIN D 600 MG-400 UNIT TABLET PO SCH (10:20)
[2018-10-18] MEDS: BENZONATATE 100 MG CAPSULE PO SCH (10:20)
[2018-10-18] MEDS: GABAPENTIN 100 MG CAPSULE PO SCH (10:20)
[2018-10-18] MEDS: METOPROLOL TARTRATE 100 MG TABLET PO SCH (10:20)
[2018-10-18] MEDS: SERTRALINE 25 MG TABLET PO SCH (10:20)
[2018-10-18] MEDS: ASPIRIN EC 81 MG TABLET PO SCH (10:21)
[2018-10-18] MEDS: MAGNESIUM CHLORIDE 64 MG TABLET PO SCH (10:21)
[2018-10-18] MEDS: MULTIVITAMIN (CENTRUM) TABLET PO SCH (10:21)
[2018-10-18] MEDS: THEOPHYLLINE ER 300 MG TABLET PO SCH (10:21)
[2018-10-18] MEDS: NON-FORMULARY MEDICATION (Fluticasone/Vilanterol [Breo Ellipta 200-25 Mcg Inh] 1 PUFF) INH SCH (10:22)
[2018-10-18] MEDS: IPRATROPIUM 0.06% NASAL SPRAY 15 ML BOTTLE BOTH NARES SCH (10:22)
[2018-10-18] MEDS: predniSONE 5 MG TABLET PO SCH (10:23)
[2018-10-18 11:51] VITALS: BP 149/85
== END 2018-10-18 13:36 | DRG 603 ==
LOC: EDUNIT# → EDBD → N.ED 14:27 → N.EDINP 18:57 → SUATTDRO 18:57 → N.EDINP 20:38 → N.2E 21:04
PROVIDERS: ADMIT Internal Medicine; ATTEND Internal Medicine